=== PATIENT | female | born 1945 | race Caucasian/White ===

== ENCOUNTER 2024-09-20 14:42 | Inpatient (IN) | payer OTHER ==
[2024-09-20 16:24] LABS: Absolute Basophils 0.1 K/uL (0-0.5); Absolute Eosinophils 0.5 K/uL (0-0.5); Absolute Lymphocytes (CBC) 2.2 K/uL (0.7-4.9); Absolute Monocytes 1.3 K/uL (0.1-1.3); Absolute Neutrophil 8.8 K/uL (1.8-8.0); Basophils % 0.8 % (0-1.3); Eosinophils % 3.7 % (0-4.4); Hematocrit 42.4 % (36.0-45.0); Hemoglobin 13.7 g/dL (12.0-15.0); Lymphocytes % 17.3 % (15.3-44.8); MCH 30.2 pg (27.0-35.0); MCHC 32.4 g/dL (32.0-36.0); Monocytes % 9.8 % (3.3-12.3); Neutrophils % 68.4 % (41.7-73.7); Platelets 328 thou/uL (152-406); RBC Red Blood Cell Count 4.55 M/uL (3.86-4.86); Red Cell Distribution Width 13.9 % (12.1-15.2)
[2024-09-20 16:34] LABS: PT Prothrombin Time 12.6 SECONDS (9.4-12.5); PTT, Activated Partial Thromb 32.4 SECONDS (24.3-36.9); Protime INR 1.13
[2024-09-20] MEDS ORDERED: LORAZEPAM 1 MG TABLET ONE (16:40)
[2024-09-20 16:59] LABS: Albumin 3.5 g/dL (3.4-5.0); Albumin/Globulin Ratio 0.9 (1.1-1.8); Anion Gap 9.6 mEq/L (5.0-15.0); Bilirubin Total 0.5 mg/dL (0.2-1.0); Globulin 4.1 g/dL (2.3-3.5); Potassium 3.6 mEq/L (3.5-5.1); Protein, Total 7.6 g/dL (6.4-8.2)
--- NOTE | 2024-09-20 16:59 | RAD REPORT ---
EXAM: Chest Single View HISTORY: left chest wall abscess COMPARISON: None. FINDINGS: LUNGS/PLEURA: The lungs are clear. No pleural effusions or pneumothorax. No pulmonary edema. MEDIASTINUM: The mediastinal silhouette is within normal limits. CARDIAC: The cardiac silhouette is within normal limits. UPPER ABDOMEN: No significant abnormality. BONES: No acute fracture. LINES/TUBES/OTHER: N/A IMPRESSION: No evidence of acute cardiopulmonary disease.
--- NOTE | 2024-09-20 18:33 | RAD REPORT ---
Thorax W/ Con CLINICAL INDICATION: Female, 78 years old. left chest wall abscess TECHNIQUE: Routine CT scan of the chest with intravenous contrast. One or more of the following dose reduction techniques were used: Automated exposure control, adjustment of the mA and/or kV according to patient size, and/or iterative reconstruction. Unless otherwise specified, incidental fi ndings do not require dedicated imaging follow-up. [id number]. COMPARISON: No prior exam. FINDINGS: LOWER NECK: Visualized thyroid gland and soft tissues are normal. LUNGS AND AIRWAYS: Airways are clear. No evidence of airspace or interstitial process. No nodules. Em physema. PLEURA: No pleural effusion. No pneumothorax. Hemidiaphragms are normally positioned. MEDIASTINUM AND LYMPH NODES: No mediastinal mass or fluid collection. Normal size mediastinal, hilar, and axillary lymph nodes. THORACIC AORTA: Normal caliber and configuration. PULMONARY ARTERIES: Normal caliber. HEART: Normal heart size. No coronary calcifications.No pericardial effusion. OSSEOUS STRUCTURES AND CHEST WALL: Enhancing superficial fluid collection in the anterior chest wall containing gas. It measures 3.5 x 1.4 cm. Approximately 1 cm superior to this collection is a probable second sebaceous cyst measuring 2.4 cm. Simple appearing cystic structure in the lateral asp ect of the left breast measuring 2.2 cm. UPPER ABDOMEN: Bilateral renal lesions which are either benign in appearance or too small to accurate ly characterize but statistically benign. IMPRESSION: Complex superficial collection in the anterior chest wall with enhancement near midline may represent an infected sebaceous cyst. A second uncomplicated sebaceous cyst is present approximately 1 cm cephalad as well. A benign-appear ing cyst is present in the left lateral breast.
[2024-09-20 18:53] LABS: Specific Gravity 1.028 (1.005-1.030); Sqamous Epithelial <5 /HPF (None Seen); Urine Bacteria <20 /HPF (<20); Urine Bilirubin NEGATIVE (Negative); Urine Blood 1+ (Negative); Urine Clarity Clear (Clear); Urine Color Light-Yellow (Yellow); Urine Culture Reflex Order NOT NEEDED; Urine Glucose NEGATIVE (Negative); Urine Ketones NEGATIVE (Negative); Urine Microscopic Reflex YN ORDER UMIC; Urine Mucus Slight /HPF (None Seen); Urine Nitrite NEGATIVE (Negative); Urine Protein 1+ (Negative); Urine Urobilinogen Normal (Normal); Urine WBC None Seen /HPF (<5)
[2024-09-20] MEDS ORDERED: VANCOMYCIN 1 GM/VIAL ONE (19:16)
[2024-09-20] MEDS ORDERED: NA CHLORIDE 0.9% 250 ML ONE (19:16)
--- NOTE | 2024-09-20 19:26 | EDPHYS ---
Physician Documentation [facility] Name: Geeta Chavarria Age: 78 yrs Sex: Female : 1945 Arrival Date: 09/20/2024 Time: 14:42 Bed 2 Private MD: ED Physician Vasiliy Paez HPI: 09/20 15:50 This 78 yrs old Female presents to ER via Ambulatory with complaints of Drainage From cp Breast, Abscess. 15:50 The patient presents with an abscess of the anterior aspect of left upper chest and cp left breast, the patient presents with a swollen area of the anterior aspect of left upper chest and left breast. Description: erythematous, fluctuant, open abscess. 15:50 Onset: The symptoms/episode began/occurred 2 day(s) ago. Associated signs and symptoms: cp Pertinent negatives: fever. 15:50 Has been taking prescribed Doxycycline for past 2 days. cp Historical: - Allergies: 15:10 Levaquin; kc6 15:10 Sulfa (Sulfonamide Antibiotics); kc6 15:10 Prednisone; kc6 - PMHx: 15:10 Chronic obstructive lung disease; Hypertensive disorder; Myocardial infarction; Anxiety;kc6 - PSHx: 15:10 Stented artery; hysterectomy; section; kc6 - Immunization history:: Adult Immunizations up to date. - Infectious Disease History:: Denies. - Social history:: Smoking status: Patient reports the use of cigarette tobacco products, smokes one pack cigarettes per day. ROS: 15:55 Constitutional: Negative for body aches, chills, fever, poor PO intake, cp 15:55 Respiratory: Negative for cough, shortness of breath, wheezing, cp 15:55 Abdomen/GI: Negative for abdominal pain, vomiting, diarrhea, constipation, 15:55 Skin: Positive for abscess, cellulitis, of the anterior aspect of left upper chest and left breast, 15:55 Neuro: Negative for altered mental status, dizziness, headache, weakness, 15:55 All other systems are negative, Exam: 16:00 Constitutional: The patient appears in no acute distress, alert, awake, non-toxic, well cp developed, well nourished, uncomfortable, 16:00 Head/Face: Normocephalic, atraumatic. cp 16:00 Eyes: Periorbital structures: appear normal, Conjunctiva: normal, no exudate, no injection, Sclera: no appreciated abnormality, Lids and lashes: appear normal, bilaterally, 16:00 ENT: External ear(s): are unremarkable, Nose: is normal, Mouth: Lips: moist, Oral mucosa: moist, Posterior pharynx: Airway: no evidence of obstruction, patent, 16:00 Chest/axilla: Inspection: normal, 16:00 Cardiovascular: Rate: normal, 16:00 Respiratory: the patient does not display signs of respiratory distress, Respirations: normal, no use of accessory muscles, no retractions, labored breathing, is not present, Breath sounds: are clear throughout, no decreased breath sounds, no stridor, no wheezing, 16:00 Abdomen/GI: Inspection: abdomen appears normal, Palpation: abdomen is soft and non-tender, in all quadrants, 16:00 Skin: abscess, that is moderate sized, of the anterior aspect of left upper chest and left breast, with drainage, that is purulent, with surrounding cellulitis, that is moderate, Vital Signs: 15:08 BP 201 / 82; Pulse 98; Resp 19 S; Temp 97.6(O); Pulse Ox 99% on R/A; Weight 65.77 kg kc6 (R); Height 5 ft. 1 in. (R); Pain 4/10; 16:30 BP 175 / 71; Pulse 82; Resp 20 S; Pulse Ox 99% on R/A; aa5 18:35 BP 170 / 76; Pulse 89; Resp 16 S; Pulse Ox 95% on R/A; aa5 19:44 BP 170 / 76; Pulse 92; Resp 18; Temp 98; Pulse Ox 98% on 2.5 lpm NC; Pain 0/10; bm8 20:52 BP 155 / 79; Pulse 82; Resp 17; Temp 98; Pulse Ox 97% ; Pain 0/10; bm8 15:08 Body Mass Index 27.40 (65.77 kg, 154.94 cm) kc6 15:08 Pain Scale: Adult kc6 19:44 Pain Scale: Adult bm8 20:52 Pain Scale: Adult bm8 [place] Coma Score: 19:44 Eye Response: spontaneous(4). Motor Response: obeys commands(6). Verbal Response: bm8 oriented(5). Total: 15. 20:52 Eye Response: spontaneous(4). Motor Response: obeys commands(6). Verbal Response: bm8 oriented(5). Total: 15. MDM: 15:14 Medical Screening Exam initiated cp 19:24 Differential diagnosis: abscess, cellulitis, Infected sebaceous cyst. Data reviewed: rn vital signs, nurses notes, lab test result(s), radiologic studies, CT scan, and as a result, I will admit patient. Consideration of Admission/Observation Patient was admitted/placed on observation. Escalation of care including admission/observation considered. Management of patient was discussed with the following: Director Of Agriculture: Discussed case with Dr. Welsh, once n.p.o. at midnight, antibiotics, IV fluids, will take to the OR tomorrow for drainage. Counseling: I had a detailed discussion with the patient and/or guardian regarding the historical points, exam findings, and any diagnostic results supporting the discharge/admit diagnosis, lab results, radiology results, the need for further work-up and treatment in the hospital. 09/20 15:46 Order name: Blood Culture Adult (2) 09/20 15:46 Order name: CBC with Diff; Complete Time: 16:39 09/20 17:27 Interpretation: Normal except: WBC 12.80; MPV 7.0; NEUT A 8.8. 09/20 15:46 Order name: CMP; Complete Time: 17:11 09/20 17:12 Interpretation: Normal except: GLUC 116; BUN 19; GFR 87; GLOB 4.1; A/G 0.9. 09/20 15:46 Order name: Lactate w/ 2H reflex if indic.; Complete Time: 17:11 09/20 17:28 Interpretation: Reviewed. 09/20 15:46 Order name: Protime (+inr); Complete Time: 16:39 09/20 17:27 Interpretation: Normal except: PT 12.6. 09/20 15:46 Order name: Ptt, Activated; Complete Time: 16:39 09/20 15:46 Order name: Urinalysis w/ reflexes; Complete Time: 19:15 09/20 15:46 Order name: Wound Culture 09/20 20:22 Order name: Urinalysis w/ reflexes EDMS 09/20 20:22 Order name: CBC with Automated Diff EDMS 09/20 20:22 Order name: CBC with Automated Diff EDMS 09/20 20:22 Order name: Comprehensive Metabolic Panel EDIA 09/20 20:22 Order name: Comprehensive Metabolic Panel EDIA 09/20 15:46 Order name: Chest Single View XRAY; Complete Time: 17:11 cp 09/20 15:46 Order name: CT Chest W/ Con; Complete Time: 19:15 cp 09/20 15:46 Order name: EKG; Complete Time: 15:47 cp 09/20 20:22 Order name: CONS Physician Consult EDIA 09/20 15:46 Order name: Cardiac monitoring; Complete Time: 16:41 cp 09/20 15:46 Order name: EKG - Nurse/Tech; Complete Time: 16:41 cp 09/20 15:46 Order name: IV Saline Lock - Large Bore; Complete Time: 16:41 cp 09/20 15:46 Order name: Labs collected and sent; Complete Time: 16:41 cp 09/20 15:46 Order name: O2 Per Protocol; Complete Time: 16:41 cp 09/20 15:46 Order name: O2 Sat Monitoring; Complete Time: 16:41 cp 09/20 15:46 Order name: Vital Signs; Complete Time: 15:48 cp Administered Medications: 16:45 Drug: LORazepam PO 1 mg PO once Route: PO; aa5 17:36 Follow up: Response: No adverse reaction aa5 19:44 Drug: vancoMYCIN IVPB 1 grams IVPB once over 2 hrs Route: IVPB; Infused Over: 2 hrs; bm8 Site: right antecubital; 20:54 Follow up: Response: No adverse reaction; IV Status: Completed infusion; IV Intake: bm8 250ml Disposition: 19:26 Co-signature as Attending Physician, Vasiliy Paez MD I agree with the assessment and rn plan of care. I reviewed the patient's care provided by Advanced Practice Provider \T\ agree w/ the diagnosis \T\ care plan. I personally saw the pt \T\ performed a substantive portion of the visit, incldng all aspects of the (History/Exam/Medical Decision Making). PA/COURTROOM REPORTER's history reviewed, patient interviewed, and examined. HPI: 78-year-old patient status post doxycycline for infected chest wall and abscess with worsening symptoms. My personal exam of patient reveals: Open wound with sebaceous material and foul smell to left mid breast with surrounding cellulitis I agree with assessment and care plan and confirm the diagnosis (es) above. Disposition Summary: 09/20/24 19:26 Hospitalization Ordered Notes: Hospitalization Status: Inpatient Admission rn Provider: Bear Singh rn Location: Telemetry/MedSurg (Inpatient) rn Condition: Stable rn Problem: new rn Symptoms: have worsened rn Bed/Room Type: Standard rn Room Assignment: 210(09/20/24 20:30) rv1 Diagnosis - Infected sebaceous cyst rn - Cellulitis of chest wall rn Forms: - Medication Reconciliation Form rn - SBAR form rn - Leadership Thank You Letter rn Signatures: Dispatcher [employer] EDMS Vasiliy Paez MD MD rn Calderon, Audri RN RN aa5 Jake Chapin PA PA cp Rita Ang RN RN kc6 Zoë Davila rv1 Steve Pantoja RN RN bm8 Corrections: (The following items were deleted from the chart) 16:41 15:46 Accucheck ordered. cp aa5 17:27 16:39 Normal except: WBC 12.80. cp cp 20:30 19:26 rn rv1
--- NOTE | 2024-09-20 19:26 | ER ---
Nurse's Notes [facility] Name: Geeta Chavarria Age: 78 yrs Sex: Female : 1945 Arrival Date: 09/20/2024 Time: 14:42 Bed 2 Private MD: Diagnosis: Infected sebaceous cyst;Cellulitis of chest wall Presentation: 09/20 15:08 Chief complaint: Patient states: cyst on left breast x1 yr that recently started to kc swell and become painful. pt states she went to urgent care in [place] and they sent her home with antibiotics. stats it "burst" x2 days ago and "smells like ". Coronavirus screen: At this time, the client does not indicate any symptoms associated with coronavirus-19. Ebola Screen: No symptoms or risks identified at this time. Initial Sepsis Screen: Does the patient meet any 2 criteria? HR > 90 bpm. Does the patient have a suspected source of infection? No. Patient's initial sepsis screen is negative. Risk Assessment: Do you want to hurt yourself or someone else? Patient reports no desire to harm self or others. Onset of symptoms was September 20, 2024. 15:08 Method Of Arrival: Ambulatory [facility] 15:08 Acuity: MEHDI 3 kc6 Historical: - Allergies: 15:10 Levaquin; kc6 15:10 Sulfa (Sulfonamide Antibiotics); kc6 15:10 Prednisone; kc6 - PMHx: 15:10 Chronic obstructive lung disease; Hypertensive disorder; Myocardial infarction; Anxiety;kc6 - PSHx: 15:10 Stented artery; hysterectomy; section; kc6 - Immunization history:: Adult Immunizations up to date. - Infectious Disease History:: Denies. - Social history:: Smoking status: Patient reports the use of cigarette tobacco products, smokes one pack cigarettes per day. Screenin:45 [facility] ED Fall Risk Assessment (Adult) History of falling in the last 3 months, aa5 including since admission No falls in past 3 months (0 pts) Confusion or Disorientation No (0 pts) Intoxicated or Sedated No (0 pts) Impaired Gait No (0 pts) Mobility Assist Device Used No (0 pt) Altered Elimination No (0 pt) Score/Fall Risk Level 0 - 2 = Low Risk Oriented to surroundings, Maintained a safe environment, Educated pt \\T\\ family on fall prevention, incl call for assistance when getting out of bed. Abuse screen: Denies threats or abuse. Nutritional screening: No deficits noted. Tuberculosis screening: No symptoms or risk factors identified. Assessment: 15:24 General: Appears in no apparent distress. Behavior is calm, cooperative. Pain: iw Complains of pain in left breast. Neuro: Level of Consciousness is awake, alert, obeys commands, Oriented to person, place, time, situation, Moves all extremities. Cardiovascular: Patient's skin is warm and dry. Respiratory: Respiratory effort is even, unlabored, Respiratory pattern is regular, symmetrical. Derm: Abscess located on anterior aspect of left upper chest and left breast is half dollar sized, has purulent drainage, has foul odor, is hot to touch, is red, was lanced by patient prior to arrival. 15:45 General: Appears comfortable, Behavior is calm, cooperative. Pain: Complains of pain in aa5 left breast Pain currently is 4 out of 10 on a pain scale. Quality of pain is described as tender, Is continuous. Neuro: Level of Consciousness is awake, alert, obeys commands, Oriented to person, place, time, situation. Cardiovascular: Heart tones S1 S2 present Rhythm is regular. Respiratory: Airway is patent Respiratory effort is even, unlabored, Respiratory pattern is regular, symmetrical. GI: No signs and/or symptoms were reported involving the gastrointestinal system. : No signs and/or symptoms were reported regarding the genitourinary system. EENT: No signs and/or symptoms were reported regarding the EENT system. Derm: Skin is pink, warm \\T\\ dry. Redness to left breast noted, abscess noted to left breast, draining foul smelling purulent drainage, dressing applied to site. Musculoskeletal: Range of motion: intact in all extremities. 16:38 Reassessment: Pt requesting medication for anxiety, provider notified. . aa5 16:38 Reassessment: Patient is alert, oriented x 3, equal unlabored respirations, skin aa5 warm/dry/pink. General: Behavior is anxious. 17:35 Reassessment: Patient is alert, oriented x 3, equal unlabored respirations, skin aa5 warm/dry/pink. Patient states feeling better. Anxiety has decreased . 18:20 Reassessment: Patient is alert, oriented x 3, equal unlabored respirations, skin aa5 warm/dry/pink. Pt assisted to restroom via wheelchair. . 18:35 Reassessment: Patient is alert, oriented x 3, equal unlabored respirations, skin aa5 warm/dry/pink. Pt back in bed, call light remains within reach. . 19:44 General: Appears in no apparent distress. comfortable, Behavior is calm, cooperative, bm8 appropriate for age. Pain: Denies pain. Neuro: Level of Consciousness is awake, alert, obeys commands, Oriented to person, place, time, situation, Appropriate for age. Cardiovascular: Heart tones S1 S2 present Capillary refill < 3 seconds in bilateral Patient's skin is warm and dry. Respiratory: Airway is patent Respiratory effort is even, unlabored, Respiratory pattern is regular, symmetrical, Breath sounds are clear bilaterally. GI: No signs and/or symptoms were reported involving the gastrointestinal system. : No signs and/or symptoms were reported regarding the genitourinary system. EENT: No signs and/or symptoms were reported regarding the EENT system. Derm: Abscess located on anterior aspect of left upper chest is half dollar sized, has purulent drainage, has foul odor, is hot to touch, is red, was lanced by patient prior to arrival. Musculoskeletal: Range of motion: intact in all extremities. 20:52 Reassessment: Patient appears in no apparent distress at this time. Patient is alert, bm8 oriented x 3, equal unlabored respirations, skin warm/dry/pink. Patient states feeling better. Patient states symptoms have improved. Vital Signs: 15:08 BP 201 / 82; Pulse 98; Resp 19 S; Temp 97.6(O); Pulse Ox 99% on R/A; Weight 65.77 kg kc6 (R); Height 5 ft. 1 in. (R); Pain 4/10; 16:30 BP 175 / 71; Pulse 82; Resp 20 S; Pulse Ox 99% on R/A; aa5 18:35 BP 170 / 76; Pulse 89; Resp 16 S; Pulse Ox 95% on R/A; aa5 19:44 BP 170 / 76; Pulse 92; Resp 18; Temp 98; Pulse Ox 98% on 2.5 lpm NC; Pain 0/10; bm8 20:52 BP 155 / 79; Pulse 82; Resp 17; Temp 98; Pulse Ox 97% ; Pain 0/10; bm8 15:08 Body Mass Index 27.40 (65.77 kg, 154.94 cm) kc6 15:08 Pain Scale: Adult kc6 19:44 Pain Scale: Adult bm8 20:52 Pain Scale: Adult bm8 [place] Coma Score: 19:44 Eye Response: spontaneous(4). Motor Response: obeys commands(6). Verbal Response: bm8 oriented(5). Total: 15. 20:52 Eye Response: spontaneous(4). Motor Response: obeys commands(6). Verbal Response: bm8 oriented(5). Total: 15. ED Course: 14:44 Patient arrived in ED. ra3 15:10 Triage completed. kc6 15:10 Arm band placed on. kc6 15:13 Jake Chapin PA is PHCP. cp 15:13 Vasiliy Paez MD is Attending Physician. cp 15:23 Barbara Flores, ADRIANO is Primary Nurse. aa5 15:45 Patient has correct armband on for positive identification. Placed in gown. Bed in low aa5 position. Call light in reach. Side rails up X2. Client placed on continuous cardiac and pulse oximetry monitoring. NIBP monitoring applied. passenger barge master on. Pulse ox on. NIBP on. 16:10 EKG done, by ED staff, reviewed by Jake AGUERO. aa5 16:14 Initial lab(s) drawn, by me, sent to lab. First set of blood cultures drawn by me. aa5 16:18 Missed attempt(s): 22 gauge in right antecubital area. Bleeding controlled, band aid aa5 applied, catheter tip intact. 16:20 Inserted saline lock: 20 gauge in left antecubital area, using aseptic technique. aa5 16:35 Second set of blood cultures drawn by me. aa5 16:37 Chest Single View XRAY In Process Unspecified. EDMS 17:35 Radiology exam delayed due to IV insertion attempt and/or patient not having mw3 appropriate IV at this time. 17:35 IV discontinued, intact, bleeding controlled, Pressure dressing applied, swelling noted aa5 upon flushing with NS by forensic science technician. 20 G to L AC dc'd. 17:35 No provider procedures requiring assistance completed. aa5 18:14 CT Chest W/ Con In Process Unspecified. EDMS 18:15 Inserted saline lock: 20 gauge in right antecubital area, using aseptic technique. aa5 ,using aseptic technique. IV inserted by ADRIANO Hemphill. 19:00 Report given to ADRIANO Wilson and ADRIANO [place]. aa5 19:25 Bear Singh MD is Hospitalizing Provider. rn 19:44 Provided Education on: need for admission. bm8 19:44 Oxygen administration via nasal cannula \\T\\ 2L/min Response to oxygen therapy: symptoms bm8 improved. Administered Medications: 16:45 Drug: LORazepam PO 1 mg PO once Route: PO; aa5 17:36 Follow up: Response: No adverse reaction aa5 19:44 Drug: vancoMYCIN IVPB 1 grams IVPB once over 2 hrs Route: IVPB; Infused Over: 2 hrs; bm8 Site: right antecubital; 20:54 Follow up: Response: No adverse reaction; IV Status: Completed infusion; IV Intake: bm8 250ml Medication: 17:36 VIS not applicable for this client. aa5 Intake: 20:54 IV: 250ml; Total: 250ml. bm8 Outcome: 19:26 Decision to Hospitalize by Provider. rn 20:54 Admitted to Med/surg accompanied by nurse, via wheelchair, room 210, bm8 20:54 Condition: stable 20:54 Instructed on the need for admit, Demonstrated understanding of instructions, follow-up care, medications, 21:04 Patient left the ED. bm8 Signatures: Dispatcher [employer] EDMS Gayatri Vieyra RN RN iw Nieto, Roman, MD MD rn Calderon, Audri, RN RN aa5 Jake Chapin PA PA cp Willis, Michelle mw3 Rita Ang RN RN kc6 Alva, Ruby 3 Steve Pantoja RN RN bm8 Corrections: (The following items were deleted from the chart) 19:13 17:30 Inserted saline lock: 20 gauge in right antecubital area, using aseptic aa5 technique. ,using aseptic technique. IV inserted by ADRIANO Hemphill aa5 20:54 20:53 Response: No adverse reaction; IV Intake: 250ml bm8 bm8
--- NOTE | 2024-09-20 20:12 | P.HP ---
Certification for Inpatient Patient admitted to: Inpatient With expected LOS: >2 Midnights Practitioner: I am a practitioner with admitting privileges, knowledge of patient current condition, hospital course, and medical plan of care. Services: Services provided to patient in accordance with Admission requirements found in Title 42 Section 412.3 of the Code of Federal Regulations Patient History Date of Service: 09/20/24 Reason for admission: Breast abscess History of Present Illness: 78 yrs old Female with past medical history of COPD, hypertension, CAD status post stent, anxiety, smoker who was brought to ER with pain and swelling and drainage from anterior chest wall on the left upper chest and left breast. Has been going on for a few days and has been progressively getting worse. Has some drainage which is erythematous and pus like. No fever or chills. No chest pain. No nausea vomiting or diarrhea. Denies any history of trauma Has been seen by the PCP and has been on doxycycline for the last 2 days. Patient was assessed in the ER and is admitted for further management of secondary infection from possible sebaceous cyst. Surgery was consulted Allergies Unable to Assess Allergy (Unverified 09/20/24 21:12) Home medications list reviewed: Yes - Past Medical/Surgical History Past Medical History: Reviewed- Non-Contributory -: COPD, hypertension -: CAD status post stents Past Surgical History: Reviewed- Non-Contributory -: Status post stent - Family History Family History: Reviewed- Non-Contributory - Social History Smoking Status: Current every day smoker Review of Systems 10-point ROS is otherwise unremarkable Physical Examination - Vital Signs Temperature: 97.2 F Blood Pressure: 142/78 Pulse: 76 Respirations: 18 Pulse Ox (%): 94 - Physical Exam General: Alert, Oriented x3, Mild distress HEENT: Atraumatic, Normocephalic Neck: Supple, No Thyromegaly Respiratory: Clear to auscultation bilaterally, Expiratory wheezes Cardiovascular: No edema, Regular rate/rhythm, Normal S1 S2 Capillary refill: <2 Seconds Gastrointestinal: Soft and benign, W/out hepatosplenomegaly Musculoskeletal: No clubbing Integumentary: Tenderness/swelling, Erythema, Warmth Neurological: Normal speech, Cranial nerves 3-12 intact, Normal reflexes 2+ Lymphatics: No axilla or inguinal lymphadenopathy - Studies Laboratory Data (last 24 hrs) 09/20/24 09/20/24 09/20/24 16:14 16:14 16:14 WBC 12.80 H Hgb 13.7 Hct 42.4 Plt Count 328 PT 12.6 H INR 1.13 APTT 32.4 Sodium 138 Potassium 3.6 BUN 19 H Creatinine 0.72 Glucose 116 H Total Bilirubin 0.5 AST 15 ALT 20 Alkaline Phosphatase 103 Assessment and Plan - Plan Infected sebaceous cyst Pain control Started on IV antibiotic Failed outpatient management Patient was on doxycycline for the last few days Surgical consult N.p.o. postmidnight Possible debridement in a.m. COPD Acute on chronic hypoxic respiratory failure Continue bronchodilators Oxygen supplementation Will try to wean down oxygen requirement Hypertension Continue home medications and titrate as needed GI/DVT prophylaxis Advanced directive full code Discharge Plan: Home Plan to discharge in: 48 Hours - Advance Directives Does patient have a Living Will: No Does patient have a Durable POA for Healthcare: No - Code Status/Comfort Care Code Status: Full Code Time Spent Managing Pts Care (In Minutes): 48
[2024-09-20] MEDS ORDERED: ALBUTEROL 2.5 MG/3 ML NEB SOL NEB PRN (20:14)
[2024-09-20] MEDS ORDERED: ACETAMINOPHEN 325 MG TABLET PO PRN (20:14)
[2024-09-20] MEDS ORDERED: MORPHINE 2 MG/ML SYR IV PRN (21:37)
[2024-09-20] MEDS ORDERED: HYDROCODONE/APAP 5/325 MG TAB PO PRN (21:37)
[2024-09-20] MEDS ORDERED: VANCOMYCIN 1 GM in NA CHLORIDE 0.9% 250 ML IVPB SCH (21:38)
[2024-09-20] MEDS: CEFTRIAXONE 1,000 MG in NA CHLORIDE 0.9% 50 ML IVPB SCH (22:07)
[2024-09-20 23:53] VITALS: BMI 27.3
[2024-09-21] MEDS: IPRATROPIUM BROM 0.5MG/2.5ML NEB SCH (01:28)
[2024-09-21] MEDS: HYDRALAZINE HCL 20 MG/ML VIAL IV PRN (04:16)
[2024-09-21 04:44] LABS: Absolute Basophils 0.1 K/uL (0-0.5); Absolute Eosinophils 0.5 K/uL (0-0.5); Absolute Lymphocytes (CBC) 2.4 K/uL (0.7-4.9); Absolute Monocytes 1.1 K/uL (0.1-1.3); Basophils % 1.1 % (0-1.3); Eosinophils % 4.6 % (0-4.4); Hematocrit 37.5 % (36.0-45.0); Hemoglobin 12.6 g/dL (12.0-15.0); Lymphocytes % 21.3 % (15.3-44.8); MCH 31.2 pg (27.0-35.0); MCHC 33.7 g/dL (32.0-36.0); MCV 92.7 fL (80-100); Monocytes % 10.3 % (3.3-12.3); Neutrophils % 62.7 % (41.7-73.7); Nucleated Red Blood Cells % 0.1 % (0-0); Platelets 299 thou/uL (152-406); RBC Red Blood Cell Count 4.05 M/uL (3.86-4.86); Red Cell Distribution Width 14.1 % (12.1-15.2)
[2024-09-21 05:05] LABS: Albumin 3.1 g/dL (3.4-5.0); Albumin/Globulin Ratio 0.9 (1.1-1.8); Anion Gap 12.5 mEq/L (5.0-15.0); Bilirubin Total 0.5 mg/dL (0.2-1.0); Globulin 3.4 g/dL (2.3-3.5); Potassium 3.5 mEq/L (3.5-5.1); Protein, Total 6.5 g/dL (6.4-8.2)
[2024-09-21] MEDS: NA CHLORIDE 0.9% 250 ML ONE (07:10)
--- NOTE | 2024-09-21 07:11 | P.PN ---
Date of Service: 09/21/24 Subjective: Patient seen postoperatively. She reports improvement of her pain Denies any new or worsening symptoms ROS: 10 point ROS as noted above, otherwise negative Physical Exam: GEN: Alert, NAD CV: Regular rate and rhythm, no edema Pulm: Nonlabored respirations on room air, clear bilaterally, mild expiratory wheezes ABD: soft, nontender, nondistended Integumentary: s/p I&D with dressing in place. Dressing C/D/I Neuro: Normal speech, normal affect Problem List: Multiple infected ruptured epidernal inclusion cysts of left chest, s/p I&D (09/21) Acute on chronic hypoxic respiratory failure secondary to acute COPD exac erbation hx CAD s/p PCI Anxiety Hypertension Tobacco use Multiple infected ruptured epidernal inclusion cysts of left chest, s/p I&D (09/21) Reports having cyst on left breast for >1 year, recently started with worsening swelling, pain States it "bursted" 2 days ago and has foul smell with purulent drainage Given prescription for Doxy ~2 days prior to admission after being seen at [facility]. given vanc in ED continue empiric rocephin / vanc (09/20-) follow blood and wound cultures Dr. Welsh, General surgery consulted s/p I&D of multiple infected ruptured epidernal inclusion cysts of left chest (09/21) local wound care per surgery pain control Acute on chronic hypoxic respiratory failure secondary to acute COPD exacerba tion shortness of breath worsened with activity. +intermittent cough, wheezes confirm home meds, restart as appropriate wean oxygen as tolerated duonebs hx CAD s/p PCI Anxiety Hypertension confirm home meds, restart as appropriate Tobacco use cessation advised VTE: Lovenox Code: Full Dispo: Home Pending surgery / recovery Time Spent Managing Pts Care (In Minutes): 55
[2024-09-21] MEDS: KCL 20 MEQ/100 mL IVPB 20 MEQ/100 ML BAG IV SCH (07:20)
[2024-09-21 08:20] LABS: Magnesium 1.9 mg/dL (1.6-2.4); Phosphorus 3.7 mg/dL (2.5-4.9)
[2024-09-21] MEDS: ENOXAPARIN 40 MG/0.4 ML SQ SCH (09:00)
[2024-09-21] MEDS ORDERED: propofoL 200 MG/20 ML VIAL IV ONE (09:44)
[2024-09-21] MEDS ORDERED: ONDANSETRON 4 MG/2 ML VIAL ONE (09:44)
[2024-09-21] MEDS ORDERED: LIDOCAINE 2% MPF 5 ML VIAL ONE (09:44)
[2024-09-21] MEDS ORDERED: FENTANYL CITR 100 MCG/2 ML ONE (09:44)
[2024-09-21] MEDS ORDERED: MIDAZOLAM HCL 2 MG/2 ML INJ ONE (09:44)
[2024-09-21] MEDS: Ringers Lactate 1,000 ML IV ONE (10:01)
[2024-09-21] MEDS: LIDOCAINE HCL/EPINEPHRINE 20 ML MDV ONE ×2 (10:37→10:48)
--- NOTE | 2024-09-21 10:58 | P.OP ---
Preoperative diagnosis: Multiple Infected Ruptured Epidermal Inclusion cysts of LEFT Chest Postoperative diagnosis: Multiple Infected Ruptured Epidermal Inclusion cysts of LEFT Chest Primary procedure: Debridement of Multiple Infected Ruptured Epidermal Inclusion cysts of Ches Anesthesia: GETA + Local Estimated blood loss: <5cc Specimen: Multiple Infected Ruptured Epidermal Inclusion cysts of LEFT Chest Findings: 11cm x 10cm to prepectoral fascia Complications: None Implants: none Transferred to: Recovery Room Condition: Good
--- NOTE | 2024-09-21 12:13 | CON ---
Date of Consultation: 09/21/2024 Brief History Of Present Illness: The patient is a 78-year-old white female with a past medical hist ory of COPD, hypertension, coronary artery disease, status post stent, anxiety with a tobacco abuse h harsh, who has a history of pain and tenderness of her chest wall, beginning around Thanksgiving. S he had this area for many years, but it became symptomatic over the holiday as described. She went t o [facility] and was prescribed antibiotics without significant improvement. No incision and drainage were performed. It got progressively worse and as of late, it began to drain foul smelling abscess like material, became painful, red and enlarged. She has a satellite lesion superior to the draining curr ent cyst she has. She continues to have swelling, tenderness, and pain in this area despite its spon taneous drainage of thick abscess like material. Past Medical History: COPD, coronary artery disease, hypertension, anxiety, tobacco abuse. Past Surgical History: Includes coronary artery stents. Allergies: TO LATEX, LEVAQUIN, AND SULFA. Family History: Reviewed, noncontributory. Social History: Smoking, she is a current everyday tobacco user. Denies alcohol or recreational sayda g use. Review of Systems: Ten-point review of systems other than HPI, denies. Physical Examination: General: At the time of my examination, she is awake, alert, and oriented. Psychiatric: Appropriate. Conversive. HEENT: Normocephalic. Sclerae anicteric. Mucous membranes are moist. Oropharynx is clear. Neck: Supple. No JVD. Chest: Normal expansion and excursion with 2 significant large cysts of the chest wall, 1 has an ope n abscess draining just to the left of midline near the sternum, and 1 superior from here. She has s ome fullness in the left breast as well consistent with a cyst laterally away from this area that gastelum s not appear to be involved. Abdomen: Soft, nontender, nondistended. Extremities: No clubbing, cyanosis, or edema. Skin: Warm and dry, otherwise from above. Laboratory Data: Revealed white blood cell count of 11.2, hemoglobin 12.6, hematocrit 37.5, platelet count was 299. PT 12.6, INR 1.13, PTT is 32.4. Sodium 141, potassium 3.5, chloride 106, carbon marleen xide 26, BUN 25, creatinine 0.7, glucose is 139, lactic acid 1.1 on admission. She had imaging perfo rmed, which included a CT of the chest, which was officially read as complex superficial collection o f the anterior chest wall with an enhancement near midline, may represent an infected sebaceous cyst. There is a second uncomplicated sebaceous cyst approximately 1 cm cephalad as well. Benign-appeari ng cyst present in left lateral breast. Assessment And Plan: This is a 78-year-old woman who comes in with an infected draining sebaceous cy st of chest wall and a satellite sebaceous cyst 1 cm proximally away from the other draining cyst. 1.IV fluid hydration. 2.Antibiotic coverage. 3.I have explained risks, benefits, and alternatives of excisional debridement of the 2 chest wall c ysts, including but not limited to, bleeding, infection, damage to surrounding tissue, need for furth er operative procedures, blood clots, heart attacks, strokes, other unforeseen complications in the p erioperative period, need for ongoing wound care. The patient displayed understanding of above state d plan. The patient and her family agreed to proceed as indicated. Thank you for this interesting consult. NADIA/ALAN Voice ID: [id number] Report ID: [id number]
--- NOTE | 2024-09-21 12:31 | OP ---
Date of Procedure: 09/21/2024 Surgeon: Abiel Welsh MD, Preoperative Diagnosis: Multiple infected ruptured epidermal inclusion cysts of the left chest. Postoperative Diagnosis: Multiple infected ruptured epidermal inclusion cysts of the left chest. Procedure Performed: Debridement of multiple infected epidermal inclusion cysts of the left chest. Anesthesia: General endotracheal plus local with 1% lidocaine. Estimated Blood Loss: Less than 5 cc. Specimens: Multiple infected ruptured epidermal inclusion cysts of the left chest. Findings: Approximately 11 cm x 10 cm wound extending to the prepectoral fascia, but not involving d eeper planes. Complications: None. Implants: None. Disposition: The patient transferred to recovery room in good condition. Procedure In Detail: After informed consent was obtained, patient was brought to the operating room, prepped and draped in the usual sterile fashion after adequate anesthesia was achieved. I made an e lliptical incision circumferentially around two epidermal inclusion cysts, which were satellite lesio ns with each other. There was infection extending to the other cyst cavity. I circumferentially rem luis all cystic material ultimately removing all the infected tissue and culturing it both aerobic an d anaerobic speciation. I then sent it off for pathologic examination. Hemostasis was achieved with electrocautery. I then irrigated the area with sterile saline, dried it. No additional hemostatic measures were required. I then packed the wound with Kerlix soaked in Vashe damp to dry, and sterile dressings were applied. The patient tolerated the procedure without incident or complication and tr ansferred to PACU in good condition. All counts were correct at the end of the case. NADIA/ALAN Voice ID: [id number] Report ID: [id number]
[2024-09-21] MEDS: VANCOMYCIN 1.25 GM in NA CHLORIDE 0.9% 250 ML IVPB SCH (17:25)
[2024-09-21] MEDS: NICOTINE 14 MG/PAT TD SCH (20:53)
[2024-09-21] MEDS: ALPRAZOLAM 0.25 MG TABLET PO PRN (20:53)
[2024-09-22 05:27] LABS: Anion Gap 8.6 mEq/L (5.0-15.0); Potassium 3.6 mEq/L (3.5-5.1)
[2024-09-22] MEDS: FLU (Fluarix Triv) TS24-25(6MOS UP)/PF 45 MCG/0.5 ML Syringe IM ONE (07:30)
[2024-09-22] MEDS: PNEUMOCOCCAL VACCINE 0.5 ML IMVAC ONE (08:00)
[2024-09-22] MEDS: ATORVASTATIN 40 MG TAB PO SCH (08:38)
[2024-09-22] MEDS: lisinopriL 5 MG TAB PO SCH (08:39)
[2024-09-22] MEDS: METOPROLOL TAR 25 MG TAB PO SCH (08:39)
[2024-09-22] MEDS: CLOPIDOGREL 75 MG TABLET PO SCH (08:39)
[2024-09-22] MEDS: ASPIRIN EC 81 MG TAB PO SCH (08:39)
[2024-09-22] MEDS: POTASSIUM CL SA 10 MEQ TAB PO ONE (08:40)
--- NOTE | 2024-09-22 09:48 | P.PN ---
Date of Service: 09/22/24 Subjective: feeling better post-operatively feels easier to take deep breath today doesn't use home oxygen pain around surgical site not as severe this morning noted to be sinus tachy post op; HR 100-110s ROS: 10 point ROS as noted above, otherwise negative Physical Exam: GEN: Alert, NAD CV: Sinus Tachycardia, no edema Pulm: Nonlabored respirations on room air, mild expiratory wheezes ABD: soft, nontender, nondistended Integumentary: s/p I&D with dressing in place. Dressing C/D/I Neuro: Normal speech, normal affect Problem List: Multiple infected ruptured epidernal inclusion cysts of left chest, s/p I&D (09/21) Acute on chronic hypoxic respiratory failure secondary to acute COPD exacerbation hx CAD s/p PCI Anxiety Hypertension Tobacco use Multiple infected ruptured epidernal inclusion cysts of left chest, s/p I&D (09/21) Reports having cyst on left breast for >1 year, recently started with worsening swelling, pain States it "bursted" 2 days ago and has foul smell with purulent drainage Given prescription for Doxy ~2 days prior to admission after being seen at [place] urgent [facility]. Dr. Welsh, General surgery consulted s/p I&D of multiple infected ruptured epidernal inclusion cysts of left chest (09/21) continue empiric rocephin / vanc (09/20-) follow blood and wound cultures local wound care per surgery pain control noted to be sinus tachy post-op HR 100-110s; Monitor on telemetry restarted home meds Acute on chronic hypoxic respiratory failure secondary to acute COPD exacerbation shortness of breath worsened with activity. +intermittent cough, wheezes Reports to missing ~3 days of some of her home meds recently. confirmed home meds, restarted wean oxygen as tolerated. Doesn't use home oxygen duonebs pulm consulted hx CAD s/p PCI Anxiety Hypertension confirm home meds, restart as appropriate Tobacco use cessation advised VTE: Lovenox Code: Full Dispo: Home, likely tomorrow, pending further improvement - vitals/oxygen, wound care Time Spent Managing Pts Care (In Minutes): 55
[2024-09-22 11:40] LABS: Specific Gravity 1.023 (1.005-1.030); Sqamous Epithelial <5 /HPF (None Seen); Urine Bacteria <20 /HPF (<20); Urine Bilirubin NEGATIVE (Negative); Urine Blood 1+ (Negative); Urine Clarity Turbid (Clear); Urine Color Light-Yellow (Yellow); Urine Culture Reflex Order NOT NEEDED; Urine Glucose NEGATIVE (Negative); Urine Ketones NEGATIVE (Negative); Urine Microscopic Reflex YN ORDER UMIC; Urine Mucus Slight /HPF (None Seen); Urine Nitrite NEGATIVE (Negative); Urine Protein TRACE (Negative); Urine RBC <5 /HPF (None Seen); Urine Urobilinogen Normal (Normal); Urine WBC <5 /HPF (<5); Urine pH 5.5 (5.0-7.0)
[2024-09-22] MEDS: HYDROCODONE/APAP 7.5/325 MG TAB PO PRN (15:22)
[2024-09-22] MEDS: VANCOMYCIN 1.25 GM in NA CHLORIDE 0.9% 250 ML IVPB SCH (16:36)
[2024-09-22] MEDS ORDERED: ALBUTEROL 2.5 MG/3 ML NEB SOL NEB PRN (16:48)
[2024-09-22] MEDS: ONDANSETRON 4 MG/2 ML VIAL IV PRN (18:02)
[2024-09-23] MEDS: MORPHINE 2 MG/ML SYR IV ONE (01:58)
[2024-09-23 05:23] LABS: Absolute Basophils 0.1 K/uL (0-0.5); Absolute Eosinophils 0.2 K/uL (0-0.5); Absolute Lymphocytes (CBC) 1.7 K/uL (0.7-4.9); Absolute Monocytes 1.1 K/uL (0.1-1.3); Absolute Neutrophil 6.8 K/uL (1.8-8.0); Basophils % 0.7 % (0-1.3); Eosinophils % 2.3 % (0-4.4); Hematocrit 36.9 % (36.0-45.0); Hemoglobin 12.1 g/dL (12.0-15.0); Lymphocytes % 17.7 % (15.3-44.8); MCH 31.2 pg (27.0-35.0); MCHC 32.9 g/dL (32.0-36.0); MCV 94.9 fL (80-100); MPV 7.2 fL (7.6-11.3); Monocytes % 10.7 % (3.3-12.3); Neutrophils % 68.6 % (41.7-73.7); Platelets 246 thou/uL (152-406); RBC Red Blood Cell Count 3.89 M/uL (3.86-4.86); Red Cell Distribution Width 14.2 % (12.1-15.2)
[2024-09-23 05:58] LABS: Anion Gap 7.5 mEq/L (5.0-15.0); Potassium 3.5 mEq/L (3.5-5.1)
[2024-09-23] MEDS: POTASSIUM CL SA 10 MEQ TAB PO ONE (08:41)
--- NOTE | 2024-09-23 12:21 | P.CNS ---
Date of Consult: 09/23/24 This 78-year-old female which was seen for breast abscess on the left side patient has significant past medical history of COPD, hypertension coronary artery disease, and tobacco use coming into the emergency room with pain and swelling of the left breast patient was found to have abscess which has been indeed. Patient denies any headache nausea vomiting chest pain abdominal pain constipation diarrhea currently getting pain medication and IV antibiotic vancomycin and Rocephin Past medical history as per HPI Social history: Tobacco positive alcohol negative Family history noncontributory Acetaminophen (Acetaminophen 325 Mg Tablet) 650 mg PO Q4HP PRN PRN Reason: Pain scale 2-4 (Mild) Hydrocodone Bitart/Acetaminophen (Hydrocodone/Apap 7.5/325 Mg Tab) 1 tab PO Q6H PRN PRN Reason: Pain scale 5-7 (Moderate) Last Admin: 09/22/24 15:22 Dose: 1 tab Albuterol Sulfate (Albuterol 2.5 Mg/3 Ml Neb [place]) 2.5 mg NEB [id number] PRN PRN Reason: SHORTNESS OF BREATH Alprazolam (Alprazolam 0.25 Mg Tablet) 0.25 mg PO TID PRN PRN Reason: ANXIETY Last Admin: 09/23/24 08:42 Dose: 0.25 mg Amoxicillin/Clavulanate Potassium (Amox/K Clav 875 Mg Tab) 875 mg PO BIDWM [facility] Aspirin (Aspirin Ec 81 Mg Tab) 81 mg PO DAILY [facility] Last Admin: 09/23/24 08:44 Dose: 81 mg Atorvastatin Calcium (Atorvastatin 40 Mg Tab) 40 mg PO DAILY [facility] Last Admin: 09/23/24 08:43 Dose: 40 mg Clopidogrel Bisulfate (Clopidogrel 75 Mg Tablet) 75 mg PO DAILY [facility] Last Admin: 09/23/24 08:44 Dose: 75 mg Enoxaparin Sodium (Enoxaparin 40 Mg/0.4 Ml) 40 mg SQ DAILY [facility] Last Admin: 09/23/24 08:51 Dose: Not Given Hydralazine HCl (Hydralazine Hcl 20 Mg/Ml Vial) 10 mg IV Q4HP PRN PRN Reason: Goal to achieve SBP in comment Last Admin: 09/23/24 00:27 Dose: 10 mg Hydromorphone HCl (Hydromorphone Hcl 1 Mg/Ml Inj) 1 mg IV Q4H PRN PRN Reason: Pain scale 8-10 (Severe) Ipratropium [place] (Ipratropium Brom 0.5mg/2.5ml) 0.5 mg NEB [id number] [facility] Last Admin: 09/23/24 07:00 Dose: Not Given Lisinopril (Lisinopril 5 Mg Tab) 2.5 mg PO DAILY [facility] Last Admin: 09/23/24 08:42 Dose: 2.5 mg Metoprolol Tartrate (Metoprolol Tar 25 Mg Tab) 25 mg PO DAILY [facility] Last Admin: 09/23/24 08:43 Dose: 25 mg Allergy/AdvReac Type Severity Reaction Status Date / Time latex Allergy Itching/Hiv Verified 09/20/24 21:39 es/Rash levofloxacin 78 AdvReac Shortness Verified 09/20/24 21:39 of breath Sulfa (Sulfonamide AdvReac Shortness Verified 09/20/24 21:39 Antibiotics) of breath Nicotine (Nicotine 14 Mg/Pat) 14 mg TD DAILY [facility] Last Admin: 09/23/24 08:44 Dose: 14 mg Ondansetron HCl (Ondansetron 4 Mg/2 Ml Vial) 4 mg IV Q6HP PRN PRN Reason: NAUSEA / VOMITING Last Admin: 09/22/24 18:02 Dose: 4 mg Review of system: 10 point review was performed Physical exam: Patient sitting in bed son by the bedside not in any acute cardiopulmonary distress Temp Pulse Resp BP Pulse Ox 97.7 F 119 H 17 151/65 H 99 09/23/24 08:00 09/23/24 08:43 09/23/24 08:00 09/23/24 08:43 09/23/24 08:00 HEENT: Within normal limits Neck: Supple, no lymphadenopathy Lungs: Basal crackles Heart: S1-S2 regular Left breast area with surgical dressing in place Abdomen: Soft, bowel sound present Extremity: Trace edema Laboratory Last Values WBC 12.80 thou/uL (4.3-10.9) H 09/20/24 16:14 RBC 4.55 M/uL (3.86-4.86) 09/20/24 16:14 Hgb 13.7 g/dL (12.0-15.0) 09/20/24 16:14 Hct 42.4 % (36.0-45.0) 09/20/24 16:14 MCV 93.0 fL (80-100) 09/20/24 16:14 MCH 30.2 pg (27.0-35.0) 09/20/24 16:14 MCHC 32.4 g/dL (32.0-36.0) 09/20/24 16:14 RDW 13.9 % (12.1-15.2) 09/20/24 16:14 Plt Count 328 thou/uL (152-406) 09/20/24 16:14 MPV 7.0 fL (7.6-11.3) L 09/20/24 16:14 Neutrophils % 68.4 % (41.7-73.7) 09/20/24 16:14 Lymphocytes % 17.3 % (15.3-44.8) 09/20/24 16:14 Monocytes % 9.8 % (3.3-12.3) 09/20/24 16:14 Eosinophils % 3.7 % (0-4.4) 09/20/24 16:14 Basophils % 0.8 % (0-1.3) 09/20/24 16:14 Absolute Neutrophils 8.8 K/uL (1.8-8.0) H 09/20/24 16:14 Absolute Lymphocytes 2.2 K/uL (0.7-4.9) 09/20/24 16:14 Absolute Monocytes 1.3 K/uL (0.1-1.3) 09/20/24 16:14 Absolute Eosinophils 0.5 K/uL (0-0.5) 09/20/24 16:14 Absolute Basophils 0.1 K/uL (0-0.5) 09/20/24 16:14 PT 12.6 SECONDS (9.4-12.5) H 09/20/24 16:14 INR 1.13 09/20/24 16:14 APTT 32.4 SECONDS (24.3-36.9) 09/20/24 16:14 Sodium 138 mEq/L (136-145) 09/20/24 16:14 Potassium 3.6 mEq/L (3.5-5.1) 09/20/24 16:14 Chloride 106 mEq/L (98-107) 09/20/24 16:14 Carbon Dioxide 26 mEq/L (21-32) 09/20/24 16:14 Anion Gap 9.6 mEq/L (5.0-15.0) 09/20/24 16:14 BUN 19 mg/dL (7-18) H 09/20/24 16:14 Creatinine 0.72 mg/dL (0.55-1.02) 09/20/24 16:14 Est GFR (CKD-EPI) 87 ml/min (=/>90) L 09/20/24 16:14 Glucose 116 mg/dL (74-106) H 09/20/24 16:14 Lactic Acid 1.1 mmol/L (0.4-2.0) 09/20/24 16:14 Calcium 9.2 mg/dL (8.5-10.1) 09/20/24 16:14 Total Bilirubin 0.5 mg/dL (0.2-1.0) 09/20/24 16:14 AST 15 U/L (15-37) 09/20/24 16:14 ALT 20 U/L (13-56) 09/20/24 16:14 Alkaline Phosphatase 103 U/L (45-117) 09/20/24 16:14 Serum Total Protein 7.6 g/dL (6.4-8.2) 09/20/24 16:14 Albumin 3.5 g/dL (3.4-5.0) 09/20/24 16:14 Globulin 4.1 g/dL (2.3-3.5) H 09/20/24 16:14 Albumin/Globulin Ratio 0.9 (1.1-1.8) L 09/20/24 16:14 Urine Color Light-yellow (Yellow) 09/20/24 18:39 Urine Clarity Clear (Clear) 09/20/24 18:39 Urine pH 6.0 (5.0-7.0) 09/20/24 18:39 Ur Specific [place] 1.028 (1.005-1.030) 09/20/24 18:39 Glucose (UA)(Auto) Negative (Negative) 09/20/24 18:39 Urine Ketones Negative (Negative) 09/20/24 18:39 Urine Blood 1+ (Negative) H 09/20/24 18:39 Urine Nitrite Negative (Negative) 09/20/24 18:39 Urine Bilirubin Negative (Negative) 09/20/24 18:39 Urine Urobilinogen Normal (Normal) 09/20/24 18:39 Ur Leukocyte Esterase Negative Jerald/uL (Negative) 09/20/24 18:39 Urine RBC 11-20 /HPF (None Seen) H 09/20/24 18:39 Urine WBC None seen /HPF (<5) 09/20/24 18:39 Ur Squamous Epith Cells <5 /HPF (None Seen) 09/20/24 18:39 Urine Bacteria <20 /HPF (<20) 09/20/24 18:39 Urine Mucus Slight /HPF (None Seen) 09/20/24 18:39 Urine Culture Reflexed Not needed 09/20/24 18:39 Urine Total Protein 1+ (Negative) H 09/20/24 18:39 Assessment and plan: 78-year-old female coming in with left breast abscess which has been I indeed she is growing Enterococcus faecalis sensitive to penicillin group patient has allergies to Levaquin and sulfa drugs we will recommend patient to be switched to Augmentin for 2 weeks continue wound care as per surgical team COPD Anemia of chronic disease Follow-up with surgical team for wound care Monitor signs of infection with WBC and fever trends Thank you for consult
--- NOTE | 2024-09-23 12:24 | P.CNS ---
Date of Consult: 09/23/24 Reason for Consult: COPD exacerbation Chief Complaint: Breast abscess shortness of breath History of Present Illness: Patient is 78 years of age history of active tobacco abuse. With a breast infection to go surgical procedures currently requiring oxygen she does follow- up with pulmonary 62 alto history of coronary artery disease and stents is not on any oxygen denies any cough Allergies latex Allergy (Verified 09/20/24 21:39) Itching/Hives/Rash levofloxacin [From Levaquin] Adverse Reaction (Verified 09/20/24 21:39) Shortness of breath Sulfa (Sulfonamide Antibiotics) Adverse Reaction (Verified 09/20/24 21:39) Shortness of breath Home Medications: Aspirin [Aspirin EC 81 MG] 81 mg PO DAILY 09/20/24 Atorvastatin Calcium 40 mg PO DAILY 09/20/24 Clopidogrel Bisulfate [Plavix] 75 mg PO DAILY 09/20/24 Lisinopril [Zestril] 2.5 mg PO DAILY 09/20/24 Metoprolol Tartrate [Lopressor*] 25 mg PO DAILY 09/20/24 - Past Medical/Surgical History Diabetic: No -: COPD, hypertension -: CAD status post stents -: Status post stent - Social History Smoking Status: Current every day smoker Alcohol use: No CD- Drugs: No Caffeine use: No Place of Residence: Home Review of Systems 10-point ROS is otherwise unremarkable ENT: Nose Discharge Respiratory: Dry, Shortness of Breath Physical Examination Temp Pulse Resp BP Pulse Ox 97.7 F 119 H 17 151/65 H 99 09/23/24 08:00 09/23/24 08:43 09/23/24 08:00 09/23/24 08:43 09/23/24 08:00 General: Alert, In no apparent distress Respiratory: Diminished, Expiratory wheezes Cardiovascular: No edema, Regular rate/rhythm, Normal S1 S2 - Problems (1) COPD (chronic obstructive pulmonary disease) Current Visit: Yes Status: Acute Plan: Patient is 78 years of age admitted with incision and drainage for breast infection history of COPD currently dyspneic requiring oxygen he is a janitor and cleaner currently taking Stiolto coronary artery disease CT of the lung and chest x-ray are both clear start patient on Dulera with bronchodilators check room air pulse ox Qualifiers: Emphysema type: unspecified
[2024-09-23] MEDS: DULERA 200/5 (MOMETASONE/FORMOTEROL) INHALER IH SCH (16:23)
[2024-09-23] MEDS: AMOX/K CLAV 875 MG TAB PO SCH (16:23)
[2024-09-23] MEDS: HYDROMORPHONE HCL 1 MG/ML INJ IV PRN (16:24)
--- NOTE | 2024-09-23 18:37 | P.PN ---
Subjective Date of Service: 09/23/24 Chief Complaint: Breast abscess shortness of breath Patient seen and examined. Patient reports tremors and palpitations which she related to Xopenex given last night for wheezing. Physical Examination - Vital Signs Temperature: 97.6 F Blood Pressure: 162/80 Pulse: 89 Respirations: 17 Pulse Ox (%): 97 - Studies Microbiology Data (last 24 hrs): 09/20/24 16:30 Wound - Left Chest Gram Stain - Final 09/20/24 16:30 Wound - Left Chest Culture & Sensitivity - Final Enterococcus Faecalis Assessment And Plan - Plan Physical examination General: Alert and oriented x3, NAD, HEENT: Conjunctiva not pale, anicteric sclera Neck: Supple, no elevated JVD Heart: Heart sounds 1 and 2 normal, regular rhythm, normal rate, no pedal edema Lungs: Clear to auscultation bilaterally, adequate breath sounds bilaterally, no rhonchi or crackles. Abdomen: Soft, nondistended, nontender, normal bowel sounds. Extremities: No tenderness, no deformity Skin: Normal skin turgor, left breast I&D wound with clean dressing. Neuro: No focal motor deficit. Normal speech. Psychiatry: Normal mood, no agitation. Diagnosis Multiple infected ruptured epidernal inclusion cysts of left chest, s/p I&D (09/21) Acute on chronic hypoxic respiratory failure secondary to acute COPD exacerbation hx CAD s/p PCI Anxiety Hypertension Tobacco use Multiple infected ruptured epidernal inclusion cysts of left chest, s/p I&D (09/21) Dr. Welsh, General surgery evaluated patient and performed I&D. Wound culture is growing Enterococcus faecalis sensitive to penicillin and ampicillin Status post empiric rocephin / vanc (09/20-) Transition IV antibiotics to oral Augmentin. Blood cultures:no growth. local wound care per surgery pain control Acute on chronic hypoxic respiratory failure secondary to acute COPD exacerbation Emphysema Patient reports intolerance to Xopenex. She desaturated to 88% on room air with ambulation. Pulmonary Dr. Mays input appreciated. Continue bronchodilators-inhalers and nebs. Avoid steroids for now given active wound infection. Patient may need home oxygen on discharge. hx CAD s/p PCI Anxiety Hypertension Continue home medications. Tobacco use Smoker cessation advised VTE: Lovenox Code: Full Dispo: Home.
[2024-09-24 11:45] VITALS: O2SAT 94
[2024-09-24] MEDS ORDERED: KETOROLAC 30 MG/ML INJ IV PRN (11:54)
[2024-09-24] MEDS: ALPRAZOLAM 0.25 MG TABLET PO SCH (12:00)
[2024-09-24] MEDS ORDERED: ALPRAZOLAM 0.25 MG TABLET PO SCH (12:00)
[2024-09-24 12:45] VITALS: BP 92/61; TEMP 98.1
--- NOTE | 2024-09-24 14:21 | P.DS ---
Admission Date: 09/20/24 Discharge Date: 09/24/24 Disposition: ROUTINE DISCHARGE Discharge Condition: GOOD Reason for Admission: Breast abscess shortness of breath Hospital Course: Diagnosis Multiple infected ruptured epidernal inclusion cysts of left chest, s/p I&D (09/21) Acute on chronic hypoxic respiratory failure secondary to acute COPD exacerbation hx CAD s/p PCI Anxiety Hypertension Tobacco use Patient presented with left breast cyst x1 year that recently ruptured 2 days prior, developed pain, swelling, purulent drainage secondary to multiple infected ruptured epidernal inclusion cysts. Patient was evaluated by Dr. Welsh, general surgeon, and underwent I&D of infected cysts on 09/22. She did well post-operatively. Patient was feeling better, breathing more comfortably on room air, breast pain/swelling improving, afebrile > 24 hours, and was deemed stable for discharge. Advised to follow up with Dr. Welsh in wound healing center in ~1 week for further management, wound care. She was also noted to be hypoxic on admission requiring oxygen supplementation. Patient treated for acute COPD exacerbation associated brochodilators. She was evaluated by Pulmonary Dr. Mays. Patient desaturated to 88% on room air with ambulation. Patient discharged with home oxygen. Follow up with PCP/pulm for further managemenet. Vital Signs/Physical Exam: Temp Pulse Resp BP Pulse Ox 98.1 F 83 16 92/61 96 09/24/24 12:00 09/24/24 12:00 09/24/24 12:00 09/24/24 12:00 09/24/24 12:00 General: Alert, In no apparent distress, Other (Anxious) HEENT: Mucous membr. moist/pink Neck: JVD not distended Respiratory: Clear to auscultation bilaterally, Normal air movement Cardiovascular: No edema, Regular rate/rhythm, Normal S1 S2 Gastrointestinal: Soft and benign, Non-distended Musculoskeletal: No swelling Integumentary: No cyanosis Neurological: Normal strength at 5/5 x4 extr Laboratory Data at Discharge: WBC 9.80 thou/uL (4.3-10.9) 09/23/24 04:53 Hgb 12.1 g/dL (12.0-15.0) 09/23/24 04:53 Hct 36.9 % (36.0-45.0) 09/23/24 04:53 Plt Count 246 thou/uL (152-406) 09/23/24 04:53 PT 12.6 SECONDS (9.4-12.5) H 09/20/24 16:14 INR 1.13 09/20/24 16:14 APTT 32.4 SECONDS (24.3-36.9) 09/20/24 16:14 Sodium 139 mEq/L (136-145) 09/23/24 04:53 Potassium 3.5 mEq/L (3.5-5.1) 09/23/24 04:53 BUN 15 mg/dL (7-18) 09/23/24 04:53 Creatinine 0.57 mg/dL (0.55-1.02) 09/23/24 04:53 Glucose 109 mg/dL (74-106) H 09/23/24 04:53 Phosphorus 3.7 mg/dL (2.5-4.9) 09/21/24 04:25 Magnesium 2.0 mg/dL (1.6-2.4) 09/23/24 04:53 Total Bilirubin 0.5 mg/dL (0.2-1.0) 09/21/24 04:25 AST 15 U/L (15-37) 09/21/24 04:25 ALT 17 U/L (13-56) 09/21/24 04:25 Alkaline Phosphatase 90 U/L (45-117) 09/21/24 04:25 Home Medications: Aspirin [Aspirin EC 81 MG] 81 mg PO DAILY 09/20/24 Atorvastatin Calcium 40 mg PO DAILY 09/20/24 Clopidogrel Bisulfate [Plavix] 75 mg PO DAILY 09/20/24 Lisinopril [Zestril] 2.5 mg PO DAILY 09/20/24 Metoprolol Tartrate [Lopressor*] 25 mg PO DAILY 09/20/24 ALPRAZolam [Xanax] 0.5 mg PO BID PRN #30 tab 09/24/24 Amox/Clavulanate [Augmentin 875-125 Tab*] 875 mg PO BIDWM #20 tab 09/24/24 Hydrocodone 7.5/APAP 325 [[place] 7.5/325 mg*] 1 tab PO Q6H PRN #15 tab 09/24/24 Mometasone/Formoterol [Dulera 200 Mcg/5 Mcg Inhaler] 2 puff IH BID #1 inhaler 09/24/24 New Medications: Amox/Clavulanate [Augmentin 875-125 Tab*] 875 mg PO BIDWM #20 tab Mometasone/Formoterol [Dulera 200 Mcg/5 Mcg Inhaler] 2 puff IH BID #1 inhaler Hydrocodone 7.5/APAP 325 [[place] 7.5/325 mg*] 1 tab PO Q6H PRN #15 tab PRN Reason: Pain Scale 5-7 (Moderate) ALPRAZolam [Xanax] 0.5 mg PO BID PRN #30 tab PRN Reason: Anxiety Physician Discharge Instructions: Physician discharge instructions: Patient presented with left breast cyst x1 year that recently ruptured 2 days prior, developed pain, swelling, purulent drainage secondary to multiple infected ruptured epidernal inclusion cysts. Patient was evaluated by Dr. Welsh, general surgeon, and underwent I&D of infected cysts on 09/22. She did well post-operatively. Patient was feeling better, breathing more comfortably on room air, breast pain/swelling improving, afebrile > 24 hours, and was deemed stable for discharge. Advised to follow up with Dr. Welsh in wound healing center in ~1 week for further management, wound care. She was also noted to be hypoxic on admission requiring oxygen supplementation. Patient treated for acute COPD exacerbation associated brochodilators. She was evaluated by Pulmonary Dr. Mays. Patient desaturated to 88% on room air with ambulation. Patient discharged with home oxygen. Follow up with PCP/pulm for further managemenet. Medications: Augmentin 875 mg bid x 10 days Follow up: PCP 3-[address] Welsh in office in ~1 week Please call to schedule / confirm appointments wound care per surgery -Daily dressing changes: Remove all dressings irrigate chest wound with sterile saline, repack loosely with Kerlix damp with Vashe placed dry gauze over top and applied tape. Keep dry out of shower with Tegaderm or other occlusive dressing. Change dressings if they get soiled or wet. Activity: Ad mio Followup: Abiel Welsh MD [ACTIVE - CAN ADMIT] - NONE,NONE [Primary Care Provider] - Time spent managing pt's care (in minutes): 39
--- NOTE | 2024-09-24 15:13 | PN ---
Subjective: The patient lying in bed. No new acute event. Chart reviewed. Objective: Vital Signs: Reviewed. Lungs: Basal crackles. Heart: S1, S2, regular. Abdomen: Soft, nontender. Bowel sounds present. Extremities: No edema. Laboratory Data: Reviewed. Assessment And Plan: Left chest breast abscess with Enterococcus faecalis. I agree with Augmentin t otal of 14 days. Continue wound care as per surgical team. Leukocytosis resolved. COPD. Continue treatment and monitor for signs of infection with WBC and fever trends. NF/MODL Voice ID: [id number] Report ID: [id number]
--- NOTE | 2024-09-26 16:12 | EKG ---
Test Date: 2024-09-20 Test Time: 15:59:15 Produce Runner: LIZ MEASUREMENT RESULTS: Intervals: Rate: 68 WI: 198 QRSD: 72 QT: 374 QTc: 397 Hominy: P: 81 WI: 198 QRS: 83 T: 87 INTERPRETIVE STATEMENTS: Normal sinus rhythm Septal infarct, age undetermined Abnormal ECG No previous ECG available for comparison Electronically Signed On 09-26-24 15:59:49 FAMILY SPECIALIST by Freddy Vazquez
== END 2024-09-24 14:57 | disposition home or self-care (01) | DRG 570 ==
LOC: ER 14:42 → ERHOLD 20:14 → 2ND 21:34
PROVIDERS: ADMIT Family Medicine; ATTEND Internal Medicine
PROC: 0JB60ZZ Excision of Chest Subcutaneous Tissue and Fascia, Open Approach (ICD-10-PCS; principal; 2024-09-21 10:00)
DX: N60.02 Solitary cyst of left breast (principal); J96.21 Acute and chronic respiratory failure with hypoxia; L03.313 Cellulitis of chest wall; J44.1 Chronic obstructive pulmonary disease with (acute) exacerbation; N61.0 Mastitis without abscess; L72.3 Sebaceous cyst; I10 Essential (primary) hypertension; F41.9 Anxiety disorder, unspecified; D63.8 Anemia in other chronic diseases classified elsewhere; J43.9 Emphysema, unspecified; I25.2 Old myocardial infarction; I25.10 Atherosclerotic heart disease of native coronary artery without angina pectoris; F17.210 Nicotine dependence, cigarettes, uncomplicated; B95.2 Enterococcus as the cause of diseases classified elsewhere; Z88.2 Allergy status to sulfonamides; Z88.1 Allergy status to other antibiotic agents; Z95.5 Presence of coronary angioplasty implant and graft; Z88.8 Allergy status to other drugs, medicaments and biological substances; Z79.82 Long term (current) use of aspirin; Z79.02 Long term (current) use of antithrombotics/antiplatelets; Z90.710 Acquired absence of both cervix and uterus; Z91.040 Latex allergy status; Z79.899 Other long term (current) drug therapy
CPT/HCPCS: 36415; 71045; 71260; 80048; 80053; 81001; 83605; 83735; 84100; 85025; 85610; 85730; 87040; 87070; 87075; 87077; 87186; 87205; 88304; 93005; 94640; 94760; 96365; 99285; J0360; J0696; J1171; J1650; J2003; J2250; J2270; J2405; J2704; J3010; J3480; J3535; J7050; J7120; J7644; Q9967